=== PATIENT | male | born 1955 | race African-American/Black ===

== ENCOUNTER 2024-08-02 18:49 | Emergency (ER) | payer MEDICARE ==
[~2024-08-02] VITALS: Ht 172.7 cm; Wt 59.0 kg
[2024-08-02 18:53] VITALS: O2SAT 100
[2024-08-02] MEDS ORDERED: CLON-493 PO (19:03)
[2024-08-02] MEDS ORDERED: ACET650S27 RC (19:03)
[2024-08-02] MEDS ORDERED: DOCU-150 PO (19:03)
[2024-08-02] MEDS ORDERED: [UNRECOGNIZED DRUG - CODE] IV (19:03)
[2024-08-02 19:09] VITALS: TEMP 36.50292
[2024-08-02] MEDS: ONDANSETRON HCL 4MG/2ML INJ IV STA (19:10)
[2024-08-02 22:27] VITALS: BP 148/85; PULSE 74; RESP 22; O2SAT 100
== END 2024-08-03 00:35 | disposition home or self-care (01) ==
LOC: ER 18:49
DX: R11.2 Nausea with vomiting, unspecified (principal); R41.82 Altered mental status, unspecified; F03.90 Unspecified dementia, unspecified severity, without behavioral disturbance, psychotic disturbance, mood disturbance, and anxiety; I11.9 Hypertensive heart disease without heart failure; N28.9 Disorder of kidney and ureter, unspecified
CPT/HCPCS: 71045; 93005; 99284